=== PATIENT | male | born 1990 | race African-American/Black ===

== ENCOUNTER 2021-06-15 13:40 | Emergency (ER) | payer OTHER ==
[~2021-06-15] VITALS: Ht 182.9 cm; Wt 79.4 kg
[2021-06-15] MEDS ORDERED: CEPHALEXIN500 MG PO (15:26)
[2021-06-15] MEDS ORDERED: NORCO5 PO ×2 (15:28→16:17)
[2021-06-15] MEDS ORDERED: IBU600 MG PO (16:12)
[2021-06-15 16:50] VITALS: BP 126/87
== END 2021-06-15 16:50 | disposition home or self-care (01) ==
LOC: ER 13:40
DX: S62.632B Displaced fracture of distal phalanx of right middle finger, initial encounter for open fracture (principal); W23.0XXA Caught, crushed, jammed, or pinched between moving objects, initial encounter; Y93.89 Activity, other specified; Y92.89 Other specified places as the place of occurrence of the external cause; Y99.9 Unspecified external cause status